=== PATIENT | female | born 1980 | race Caucasian/White ===

== ENCOUNTER 2019-03-15 20:52 | Emergency (ER) | payer BC ==
[~2019-03-15] VITALS: Ht 165.1 cm; Wt 131.5 kg
[2019-03-15 21:15] LABS: BASO # 0.1 x10^3/uL (0.0-0.2); BASO % 1 % (0-3); EOS # 0.5 x10^3/uL (0.0-0.7); EOS % 4 % (0-3); HEMATOCRIT 36.1 % (36.0-47.0); HEMOGLOBIN 12.3 g/dL (12.0-15.5); LYMPH # 3.8 x10^3/uL (1.0-4.8); LYMPH % 31 % (24-48); MEAN CORPUSCULAR HEMOGLOBIN 31 pg (25-35); MEAN CORPUSCULAR HGB CONC 34 g/dL (31-37); MEAN CORPUSCULAR VOLUME 90 fL (79-100); MONO # 0.7 x10^3/uL (0.0-1.1); MONO % 5 % (0-9); NEUT # 7.3 x10^3/uL (1.8-7.7); NEUT % 59 % (31-73); PLATELET COUNT 245 x10^3/uL (140-400); RED BLOOD COUNT 4.01 x10^6/uL (3.50-5.40); RED CELL DISTRIBUTION WIDTH 13.7 % (11.5-14.5); WHITE BLOOD COUNT 12.4 x10^3/uL (4.0-11.0)
--- NOTE | 2019-03-15 21:18 | PHYS DOC ---
Past Medical History Past Medical History: Anxiety Past Surgical History: Alcohol Use: Occasionally Drug Use: None Adult General Chief Complaint Chief Complaint: Palpitations HPI HPI 38-year-old female presents to the emergency Department with complaints of palpitations, feeling of her heart racing. He states symptoms have been off and on however tonight got worse, she states she felt hot, nauseous, near syncopal. Denies any fever, chest pain, does describe some shortness of breath as well as nausea. History of anxiety, states she sometimes take Xanax 0.25 mg at night. No worsening of her symptoms she presented to the ER for further evaluation. Nothing makes her feelings worse or better. Review of Systems Review of Systems Constitutional: Denies fever or chills [] Eyes: Denies change in visual acuity, redness, or eye pain [] Respiratory: + shortness of breath [] Cardiovascular: No additional information not addressed in HPI [] GI: Denies abdominal pain, + nausea, no vomiting, bloody stools or diarrhea [] Musculoskeletal: Denies back pain or joint pain [] Integument: Denies rash or skin lesions [] Neurologic: Denies headache, focal weakness or sensory changes, near syncope [] All other systems were reviewed and found to be within normal limits, except as documented in this note. Current Medications Current Medications Current Medications Medications (Trade) Dose Ordered Sig/Peggy Start Time Stop Time Status Last Admin Dose Admin Lorazepam (Ativan Inj) 1 mg 1X ONCE 03/15/19 21:30 03/15/19 21:31 DC 03/15/19 21:29 1 MG Allergies Allergies Allergies Coded Allergies Type Severity Reaction Last Updated Verified No Known Drug Allergies 03/15/19 No Physical Exam Physical Exam Constitutional: Well developed, well nourished, no acute distress, non-toxic appearance. [] HENT: Normocephalic, atraumatic, bilateral external ears normal, oropharynx moist, no oral exudates, nose normal. [] Eyes: PERRLA, EOMI, conjunctiva normal, no discharge. [] Neck: Normal range of motion, no tenderness, supple, no stridor. [] Cardiovascular:Heart rate regular rhythm, no murmur [] Lungs & Thorax: Bilateral breath sounds clear to auscultation [] Abdomen: Bowel sounds normal, soft, no tenderness, no masses, no pulsatile masses. [] Skin: Warm, dry, no erythema, no rash. [] Back: No tenderness, no CVA tenderness. [] Extremities: No tenderness, no cyanosis, no clubbing, ROM intact, no edema. [] Neurologic: Alert and oriented X 3, normal motor function, normal sensory function, no focal deficits noted. [] Psychologic: Affect normal, judgement normal, mood normal. [] Current Patient Data Vital Signs Vital Signs Date Time Temp Pulse Resp B/P (MAP) Pulse Ox O2 Delivery O2 Flow Rate FiO2 03/15/19 21:11 98.2 104 26 142/80 (100) 100 Room Air 98.2 Lab Values Laboratory Tests Test 03/15/19 21:05 White Blood Count 12.4 x10^3/uL (4.0-11.0) H Red Blood Count 4.01 x10^6/uL (3.50-5.40) Hemoglobin 12.3 g/dL (12.0-15.5) Hematocrit 36.1 % (36.0-47.0) Mean Corpuscular Volume 90 fL (79-100) Mean Corpuscular Hemoglobin 31 pg (25-35) Mean Corpuscular Hemoglobin Concent 34 g/dL (31-37) Red Cell Distribution Width 13.7 % (11.5-14.5) Platelet Count 245 x10^3/uL (140-400) Neutrophils (%) (Auto) 59 % (31-73) Lymphocytes (%) (Auto) 31 % (24-48) Monocytes (%) (Auto) 5 % (0-9) Eosinophils (%) (Auto) 4 % (0-3) H Basophils (%) (Auto) 1 % (0-3) Neutrophils # (Auto) 7.3 x10^3/uL (1.8-7.7) Lymphocytes # (Auto) 3.8 x10^3/uL (1.0-4.8) Monocytes # (Auto) 0.7 x10^3/uL (0.0-1.1) Eosinophils # (Auto) 0.5 x10^3/uL (0.0-0.7) Basophils # (Auto) 0.1 x10^3/uL (0.0-0.2) D-Dimer (Reena) 0.48 ug/mlFEU (0.00-0.50) Sodium Level 139 mmol/L (136-145) Potassium Level 3.7 mmol/L (3.5-5.1) Chloride Level 102 mmol/L (98-107) Carbon Dioxide Level 25 mmol/L (21-32) Anion Gap 12 (6-14) Blood Urea Nitrogen 13 mg/dL (7-20) Creatinine 1.0 mg/dL (0.6-1.0) Estimated GFR (Cockcroft-Gault) 62.7 BUN/Creatinine Ratio 13 (6-20) Glucose Level 108 mg/dL (70-99) H Calcium Level 9.3 mg/dL (8.5-10.1) Magnesium Level 1.8 mg/dL (1.8-2.4) Total Bilirubin 0.4 mg/dL (0.2-1.0) Aspartate Amino Transferase (AST) 17 U/L (15-37) Alanine Aminotransferase (ALT) 21 U/L (14-59) Alkaline Phosphatase 68 U/L (46-116) Troponin I Quantitative < 0.017 ng/mL (0.000-0.055) Total Protein 8.0 g/dL (6.4-8.2) Albumin 3.8 g/dL (3.4-5.0) Albumin/Globulin Ratio 0.9 (1.0-1.7) L Thyroid Stimulating Hormone (TSH) 8.165 uIU/mL (0.358-3.74) H Laboratory Tests 03/15/19 21:05 Laboratory Tests 03/15/19 21:05 EKG EKG EKG reveals heart rate 100, no ST elevation [place] appreciated, no acute ST change,[] Interpretation Time: Interpretation time 210 Radiology/Procedures Radiology/Procedures [facility] [address] [place] [address] IMAGING REPORT Signed PATIENT: BILLY JURADO ACCOUNT: [id number] : 1980 LOCATION: ER AGE: 38 SEX: F EXAM STATUS: PRE ER ORD. PHYSICIAN: STEPHANIE BAIRD MD REASON: palpitations PROCEDURE: CHEST AP ONLY PROCEDURE: CHEST AP ONLY CLINICAL INDICATION: Palpitations. COMPARISON: None FINDINGS: No pneumothorax identified. Cardiac and mediastinal contours unremarkable. No pulmonary consolidation or acute airspace disease. No acute osseous abnormalities identified. IMPRESSION: No pulmonary consolidation or acute airspace disease. Electronically signed by: Yosef Daniel DO (03/15/2019 9:53 PM) [facility] DICTATED and SIGNED BY: YOSEF DANIEL DO DATE: 03/15/192152 [] Course & Med Decision Making Course & Med Decision Making Pertinent Labs and Imaging studies reviewed. (See chart for details) []38-year-old female presents to the emergency Department with complaints of pa lpitations, feeling of her heart racing. He states symptoms have been off and on however tonight got worse, she states she felt hot, nauseous, near syncopal. Denies any fever, chest pain, does describe some shortness of breath as well as nausea. History of anxiety, states she sometimes take Xanax 0.25 mg at night. No worsening of her symptoms she presented to the ER for further evaluation. Nothing makes her feelings worse or better. Labs reviewed with patient. TSH is elevated 8.16, new diagnosis of hypothyroidism. Troponin and d-dimer negative. Chest x-ray without evidence of acute consolidation. Discussed findings with patient. Prescription provided for levothyroxine 25 �g daily. Recommend follow-up with her primary care physician for lab work in the next 3-6 weeks. Dragon Disclaimer Dragon Disclaimer This electronic medical record was generated, in whole or in part, using a voice recognition dictation system. Departure Departure Impression: Primary Impression: Palpitations Additional Impressions: Hypothyroid Anxiety Disposition: 01 HOME, SELF-CARE Condition: STABLE Patient Instructions: Anxiety and Panic Attacks, [id number], Palpitations, [id number] Additional Instructions: Labs and imaging reviewed Ddimer within normal limits, troponin (hear enzyme) normal TSH elevated - new diagnosis of hypothyroid Return to the ER with chest pain, fever, altered mental status Scripts Levothyroxine Sodium (LEVOTHYROXINE SODIUM) 25 Mcg Tablet 1 TAB PO DAILY, #30 TAB 5 Refills Prov: STEPHANIE BAIRD MD 03/15/19 Problem Qualifiers Additional Impressions: Hypothyroid Hypothyroidism type: unspecified Qualified Codes: E03.9 - Hypothyroidism, unspecified STEPHANIE BAIRD MD Mar 15, 2019 21:18
[2019-03-15 21:24] LABS: CALCIUM 9.3 mg/dL (8.5-10.1); GFR 62.7; POTASSIUM 3.7 mmol/L (3.5-5.1)
[2019-03-15 21:30] LABS: ALBUMIN 3.8 g/dL (3.4-5.0); ALBUMIN/GLOBULIN RATIO 0.9 (1.0-1.7); TOTAL BILIRUBIN 0.4 mg/dL (0.2-1.0)
--- NOTE | 2019-03-15 21:56 | RAD ---
PROCEDURE: CHEST AP ONLY CLINICAL INDICATION: Palpitations. COMPARISON: None FINDINGS: No pneumothorax identified. Cardiac and mediastinal contours unremarkable. No pulmonary consolidation or acute airspace disease. No acute osseous abnormalities identified. IMPRESSION: No pulmonary consolidation or acute airspace disease. Electronically signed by: Yosef Daniel DO (03/15/2019 9:53 PM) [facility]
[2019-03-15 22:00] VITALS: BP 128/85
[2019-03-15] MEDS ORDERED: LEVO25TA4 PO (22:08)
--- NOTE | 2019-03-17 06:13 | EKG ---
[facility] [address] [place] [address] Test Date: 2019-03-15 Test Time: 21:02:06 Pat Name: BILLY JURADO Department: Room: Gender: F [employer]: : 1980 Requested By: STEPHANIE BAIRD Order Number: [id number] Reading MD: Measurements Intervals [place] Rate: 99 P: 48 WI: 188 QRS: 14 QRSD: 90 T: 17 QT: 358 QTc: 464 Interpretive Statements SINUS RHYTHM NORMAL ECG No previous ECG available for comparison
== END 2019-03-15 22:20 | disposition home or self-care (01) ==
LOC: ER 20:52
DX: R00.2 Palpitations (principal); E03.9 Hypothyroidism, unspecified; F41.9 Anxiety disorder, unspecified; R55 Syncope and collapse
CPT/HCPCS: 36415; 71045; 80053; 83735; 84443; 84484; 85025; 85379; 93005; 96374; 99285; J2060